=== PATIENT | female | born 1985 | race Caucasian/White ===

== ENCOUNTER 2017-01-23 08:00 | Inpatient (IN) ==
[2017-01-23] MEDS ORDERED: Lidocaine 1% 20 ML MDV INFILT PRN (08:54)
[2017-01-23] MEDS ORDERED: Famotidine 20 MG/2 ML VIAL IVP PRN (08:54)
[2017-01-23] MEDS ORDERED: Ondansetron 4 MG/2 ML VIAL IVP PRN (08:54)
[2017-01-23] MEDS ORDERED: *HR* Nalbuphine 20 MG/ML AMPUL IVP PRN (08:54)
[2017-01-23] MEDS ORDERED: Naloxone 0.4 MG/ML INJ IVP PRN (08:54)
[2017-01-23] MEDS ORDERED: Ringers Solution, Lactated 1,000 ML IVC SCH (09:00)
--- NOTE | 2017-01-23 09:37 | OB/GYN History & Physical ---
Date of Encounter: 01/23/17 Time of Encounter: 09:18 Assessment and Plan (1) 40 weeks gestation of Current visit: Yes Status: Acute (2) Elective induction of labor planned Current visit: Yes Status: Acute - IV fluids. - Cytotec. - Nubain - CBC - UDS - Epidural consult - NST assessment. History of Present Illness Chief complaint: Induction of labor HPI: Ms. Lovell is a 31 year old female at 40 5/7 weeks gestation that presents for induction of labor. She admits to good movement. She denies vaginal fluid leakage or bleeding. She denies contractions, KOTHARI, vision changes, chest pain fever, chills, dysuruia, or diarrhea. She admits to SOB throughout her when she exerts herself. She admits to nausea throughout her but she denies vomiting. GBS: negative HIV Ag/Ab: non-reactive T, Pallidum Ab: negative Rubella Ab: positive Varicella Ab: positive Blood type: O+ HepBSAg: non-reactive (09/13/16) Past Med Surg Social Fam HX - Past Medical History Psychiatric history: no psych history - Social History Smoking Status: Never smoker Alcohol use: none Drug use: none - Family History Grandmother Living Status: Hx Family Cancer: Yes Obstetrical History - Pregnancies : 2 Para: 1 Term: 1 : 0 Ab's: 0 Livin Review of System OB All systems PM: reviewed and no additional remarkable complaints except as stated Exam - Vital Signs Vital signs: BP: 116/76 HR: 70 FHR: 124 [place]: 57 - Constitutional Constitutional: well developed, well nourished, no acute distress, average body habitus - Lungs Respiratory exam: CTAB - Cardiovascular Cardiovascular exam: RRR, +S1, +S2 - Abdomen Abdomen: Present: bowel sounds normal, gravid, non tender - Extremities Extremities exam: full ROM, normal capillary refill, normal inspection, radial pulses palpable and symmetrical Deep Tendon Reflex Grade: 2+ Normal Results Result Diagrams: 01/23/17 09:15 All other labs normal. - VTE Reasons for not Prescribing Prophylaxis: Treatment not Indicated - Low risk for VTE - Attending Attestation I examined this patient and my medical decision-making was reviewed with the Resident Physician. I agree with the documented findings, disposition and treatment plan as described. Manoj Trinidad CNM
[2017-01-23 09:44] LABS: Basophils % 0.5 %; Eosinophils % 0.2 %; Hematocrit 36.5 % (35.3-44.9); Hemoglobin 12.4 g/dL (11.5-15.4); Immature Granulocytes % 0.4 % (0-4); Lymphocytes # 1.8 K/mcL (0.6-4.6); Lymphocytes % 21.6 %; Mean Corpuscular Hemoglobin 32.8 pg (28.0-33.3); Mean Corpuscular Volume 96.6 fL (83.0-100.0); Mean Platelet Volume 11.6 fL (9.4-12.4); Monocytes # 0.7 K/mcL (0.0-1.3); Monocytes % 8.2 %; Neutrophils # 5.7 K/mcL (1.6-8.9); Platelet Count 162 K/mcL (140-400); Red Blood Count 3.78 M/mcL (3.82-4.97); Red Cell Distribution Width 13.4 % (11.5-14.5); Segmented Neutrophils % 69.1 %
[2017-01-23] MEDS: miSOPROStol 25 MCG TABLET PO PRN ×2 (09:45→15:03)
[2017-01-23 12:15] LABS: Amphetamine Screen,Urine Negative ng/mL (Cutoff=1000); Barbiturate Screen,Urine Negative ng/mL (Cutoff=200); Benzodiazepines Screen,Urine Negative ng/mL (Cutoff=200); Cannabinoid Screen,Urine Negative ng/mL (Cutoff = 50); Cocaine Screen,Urine Negative ng/mL (Cutoff= 300); Opiate Screen,Urine Negative ng/mL (Cutoff=300); Phencyclidine Screen,Urine Negative ng/mL (Cutoff=25)
--- NOTE | 2017-01-23 16:53 | OB Labor Progress Note ---
Date of Encounter: 01/23/17 Time of Encounter: 16:50 Labor Progress Note - Subjective Subjective: Patient resting comfortably in bed. - Vital Signs Vital Signs: VSS - Cervix Cervix: 4/70/-1 mid position firm - Heart Tones Heart Tones: 120 with moderate variability and 15 x 15 accels. - [place]: Contractions every 2-4 minutes - Interventions Interventions: Attempt AROM x 2. unsuccessful. Patient and fetus tolerated well. - Plan Plan: Continue routine labor management GBS negative Consider AROM for augmentation Anticipate vaginal delivery POC per consult with Dr Lazcano.
[2017-01-23] MEDS ORDERED: *HR* Ropivacaine/PF 0.2% 10 ML AMPUL EP ONE (18:17)
[2017-01-23] MEDS ORDERED: Ringers Solution, Lactated 500 ML IVC ONE (18:17)
[2017-01-23] MEDS ORDERED: EPHEDrine 50 MG/ML VIAL IVP PRN (18:17)
--- NOTE | 2017-01-23 18:19 | Anesthesia Evaluation PreOp ---
Date of Encounter: 01/23/17 Time of Encounter: 18:10 - Past History Planned Operation: EMANUEL Cardiac History: Denies any Significant Hx Pulmonary History: Former smoker [employer] ATTENDANT History: Denies Any Significant HX Other Medical History: Denies Any Significant HX Anesthesia History: No Prior Anesthetic Complications, Past Anesthesia (Epidural ) : Yes Alcohol Use: none Drug use: none Medications and Allergies 3 Allergy/AdvReac Type Severity Reaction Status Date / Time No Known Allergies Allergy Verified 01/23/17 09:44 - Meds/Allergy Pre-op Review Medications Reviewed: Yes Allergies Reviewed: Yes Beta Blockers on Current Med List: No Anesthesia Results - Labs 01/23/17 09:15 Anesthesia Exam Height: 1.7m NPO (# of Hours): >6hr Pain Scale: 7 Pain Scale Used: Numeric (1 - 10) - HEENT Pupil (Motor): Pupils equal Mallampati: II Teeth: Normal Oral Opening: Greater than 3 - [employer] ATTENDANT LOC: Oriented [employer] ATTENDANT Motor: Normal RUE, Normal LUE, Normal RLE, Normal LLE, Normal Face [employer] ATTENDANT Sensory: Normal: RUE, LUE, RLE, LLE, Face - Cardiac Rhythm: Regular Murmur: None JVD: No Carotid Bruit: No - Pulmonary Breath Sounds: bilateral Clear Respiratory Effort: Symmetrical Anesthesia Assess/Plan ASA Score: 2 Modified [place] Scale for Level of Consciousness: Cooperative, oriented, and tranquil Anesthetic Plan: Regional Monitoring Plan: Standard Monitors Recovery Plan: Other
[2017-01-23] MEDS ORDERED: Epidural Premix (fent/bupiv) 110 ML EP ONE (18:20)
[2017-01-23] MEDS ORDERED: Epidural Premix (fent/bupiv) 110 ML EP SCH (18:30)
--- NOTE | 2017-01-23 18:49 | Anesthesia Procedures ---
Date of Encounter: 01/23/17 Time of Encounter: 18:24 Procedures: Anesthesia - Epidural/Spinal Patient ID/Chart reviewed: Yes Patient examined: Yes OB Eval: Gestational age: 40.5 OB Eval: : 2 OB Eval: Hx Para: 1 OB Eval: Dilated at (cm): 6 OB Eval: Contractions: Non-stressed pattern Consent Obtained: Yes Supplemental Oxygen: None/Room Air Site Prep: Aseptic Technique, Sterile prep and drape, 0.5% Chlorhexidine/Alcohol Patient position: upright Local Anesthetic: Lidocaine 1% Amount of Local Anesthetic used: 2 Touhy Needle Gauge: 18 Touhy Needle Depth (cm): 6 Catheter Depth at Skin (cm): 12 Test Dose (1.5% Lido + Epi): Volume given (mls): 3 Test Dose Result: Negative Loading Dose: Other: Ropivacaine 0.5% 8mL Loading Dose Administered: Thru Catheter Infusion Med: 0.125% Bupivacaine w/ 2 mcg/ml Fentanyl Infusion Rate (mls/hr): 14 (Bolus 5mL q15min; Max 3/hour) Catheter Secured in Place: Tegaderm Interspace Used: L3-L4 Loss of Resistance (CHELI): Yes Blood: No CSF: No Paresthesia: No Procedure: x1 attempt. Patient tolerated well. Vitals + FHT's: VSS and FHR stable throughout. See nursing documentation.
[2017-01-23] MEDS ORDERED: *HR* Phenylephrine 10 MG/ML VIAL ONE (18:57)
[2017-01-23] MEDS ORDERED: EPHEDrine 50 MG/ML VIAL ONE (19:00)
[2017-01-23] MEDS ORDERED: Oxytocin 20 units/ LR 1000 mL 20 UNIT/1,000 ML BAG IVC ONE (20:06)
[2017-01-23] MEDS ORDERED: Oxytocin 20 units/ LR 1000 mL 20 UNIT/1,000 ML BAG IVC SCH ×2 (20:15→23:12)
--- NOTE | 2017-01-23 22:34 | OB/GYN Procedure Note ---
Delivery - Delivery Date: 01/23/17 Provider: Abiel Lazcano Intrapartum events: none Delivery induction: AROM, misoprostol Delivery monitor: external FHT, external uterine Anesthesia: epidural Estimated Blood Loss: 100 - (s) Infant A Infant Delivery Date: 01/23/17 Delivery Time: 22:05 Presentation: vertex Position: ARELI Gender: Female Viability: Viable Weight Gram: 3.42 kg at 1 minute: 8 at 5 mins: 9 Shoulder Dystocia: not encountered Placenta: spontaneous Cord: 3 umbilical vessels - Repair Laceration Description: Perineal - 2nd Degree - Complications Delivery complications: none - Disposition Mom disposition: stable in LDR [place] disposition: stable in LDR - Comments Comments: Pt is s/p of liveborn female infant without complications. Spontaneous delivery of normal placenta with 3 VC. 2nd degree laceration repaired with 3-0 vicryl. Mother and infant recovered in LDR. EBL 100 cc.
[2017-01-23] MEDS ORDERED: Acetaminophen 325 MG TABLET PO PRN (23:12)
[2017-01-23] MEDS ORDERED: Rho Immune Globulin 1,500 UNIT SYRINGE IM PRN (23:12)
[2017-01-23] MEDS ORDERED: Measles/Mumps/Rubella Vacc 0.5 ML VIAL SQ PRN (23:12)
[2017-01-24] MEDS ORDERED: Ibuprofen 600 MG TABLET PO PRN (08:44)
--- NOTE | 2017-01-24 08:44 | Discharge Summary ---
Date of Encounter: 01/24/17 Time of Encounter: 08:42 - Discharge Diagnosis (1) Vaginal delivery Priority: Primary Status: Acute Comments: Pt meeting milestones. She is requesting discharge home this evening. - Discharge Medications Prescriptions: Ibuprofen [Motrin] 600 mg PO Q6HR PRN #30 tablet PRN Reason: Pain Docusate [Colace] 100 mg PO BID #60 capsule Home Medications: Docusate [Colace] 100 mg PO BID #60 capsule 01/24/17 [Rx] Ibuprofen [Motrin] 600 mg PO Q6HR PRN #30 tablet 01/24/17 [Rx] Vit/FA 1 each PO DAILY tablet 01/24/17 [Rx] Allergies/Adverse Reactions: 3 Allergy/AdvReac Type Severity Reaction Status Date / Time No Known Allergies Allergy Verified 01/23/17 09:44 Data Procedures and tests throughout hospitalization: Laboratory Tests 01/23/17 01/23/17 09:15 09:15 WBC 8.2 RBC 3.78 L Hgb 12.4 Hct 36.5 MCV 96.6 MCH 32.8 MCHC 34.0 RDW 13.4 Plt Count 162 MPV 11.6 Immature Gran % 0.4 Seg Neutrophils % 69.1 Lymphocytes % 21.6 Monocytes % 8.2 Eosinophils % 0.2 Basophils % 0.5 Neutrophils # 5.7 Lymphocytes # 1.8 Monocytes # 0.7 Eosinophils # 0.0 Basophils # 0.0 Urine Opiates Screen Negative Ur Barbiturates Screen Negative Ur Phencyclidine Scrn Negative Ur Amphetamines Screen Negative U Benzodiazepines Scrn Negative Urine Cocaine Screen Negative U Marijuana (THC) Screen Negative Labs on day of discharge: Labs from last 24 hours 01/23/17 01/23/17 09:15 09:15 WBC 8.2 RBC 3.78 L Hgb 12.4 Hct 36.5 MCV 96.6 MCH 32.8 MCHC 34.0 RDW 13.4 Plt Count 162 MPV 11.6 Immature Gran % 0.4 Seg Neutrophils % 69.1 Lymphocytes % 21.6 Monocytes % 8.2 Eosinophils % 0.2 Basophils % 0.5 Neutrophils # 5.7 Lymphocytes # 1.8 Monocytes # 0.7 Eosinophils # 0.0 Basophils # 0.0 Urine Opiates Screen Negative Ur Barbiturates Screen Negative Ur Phencyclidine Scrn Negative Ur Amphetamines Screen Negative U Benzodiazepines Scrn Negative Urine Cocaine Screen Negative U Marijuana (THC) Screen Negative Date of admission: 01/23/17 08:05 Primary care physician: PCP NONE Consults: 01/23/17 23:12 Consult to [employer] Specialist [CONS] Routine Comment: Vaginal delivery, consult needed Discharging clinician: Eliza Valdez Anticipated date of discharge: 01/24/17 - Patient Status Disposition: Home, Self-Care Condition: Good Functional capacity at discharge: independent ambulation Overall status at discharge: patient is progressing back to baseline - Discharge Instructions Follow Up With: NONE,PCP [Primary Care Provider] - Abiel Lazcano MD [Partnered Physician] - - Diet and Activity Activity: resume usual activities as tolerated Diet: regular diet Hospital Course Reason for admission: induction of labor Delivery: Episiotomy: none Laceration: 2nd degree Other procedures: none complications: none Discharge diagnosis: IUP at term delivered [place] baby: female Hospital course: - Delivery Date: 01/23/17 Provider: Abiel Lazcano Intrapartum events: none Delivery induction: AROM, misoprostol Delivery monitor: external FHT, external uterine Anesthesia: epidural Estimated Blood Loss: 100 - Infant (s) A Infant Delivery Date: 01/23/17 Delivery Time: 22:05 Presentation: vertex Position: ARELI Gender: Female Viability: Viable Weight Gram: 3.42 kg at 1 minute: 8 at 5 mins: 9 Shoulder Dystocia: not encountered Placenta: spontaneous Cord: 3 umbilical vessels - Repair Laceration Description: Perineal - 2nd Degree - Complications Delivery complications: none - Disposition Mom disposition: home PPD#1 disposition: home with mother, bottle feeding breastmilk Time Attestation: Total time spent providing and/or coordinating discharge services: Time Spent: Less than 30 minutes Exam - Constitutional Vitals: Temp Pulse Resp BP Pulse Ox 98.2 F 57 16 129/79 100 01/24/17 08:31 01/24/17 08:31 01/24/17 08:31 01/24/17 08:31 01/24/17 08:31 General appearance IM: A&O X 3 - Respiratory Respiratory exam: Present: CTAB - Cardiovascular Cardiovascular exam IM: Present: RRR - GI/Abdominal GI/Abdominal exam IM: soft - Rectal Rectal exam: deferred - Uterine Tone: Firm Uterus Position: At Umbilicus - Extremities Exam Extremities exam IM: Present: normal inspection - Neurological Exam Neurological exam: normal gait, oriented X3 - Psychiatric Additional comments: reports good mood
[2017-01-24] MEDS ORDERED: Prenatal Vit/FA 1 EACH TABLET PO SCH (09:00)
[2017-01-24 21:11] VITALS: BP 115/78
== END 2017-01-24 22:53 | disposition home or self-care (01) | DRG 775 ==
LOC: 1NENULAB 08:05 → 1NENUOBS 01-24 01:34
PROVIDERS: ADMIT Obstetrics & Gynecology; ATTEND Obstetrics & Gynecology